=== PATIENT | female | born 1940 | race Caucasian/White ===

== ENCOUNTER → 2017-01-25 | Outpatient (CLI) | payer MEDICARE ==
[~2017-01-25] MED LIST: ACET1TAB52 PO; ASPI-496 PO; ATOR80TA75 PO; CEPH-367 PO; CLOP75TA PO; CYCL5TAB PO; D-MA1POW PO; METO25TA35 PO; MV,C400T2 PO; OMEP-110 PO; PLAN450T PO; SIMV40TA3 PO; VIT1CAPS10 PO
== END | disposition home or self-care (01) ==
LOC: CVU 13:00
PROVIDERS: ATTEND Internal Medicine Cardiovascular Disease
DX: M79.605 Pain in left leg (principal); I70.203 Unspecified atherosclerosis of native arteries of extremities, bilateral legs; R25.2 Cramp and spasm; M54.9 Dorsalgia, unspecified; I10 Essential (primary) hypertension; Z87.891 Personal history of nicotine dependence; I25.2 Old myocardial infarction
CPT/HCPCS: 93922; 93925

== ENCOUNTER → 2018-01-25 | Outpatient (CLI) | payer MEDICARE ==
[~2018-01-25] MED LIST changes: +ATOR-2 PO; -ATOR80TA75 PO
== END ==
LOC: CFH 10:28
PROVIDERS: ATTEND Nurse Practitioner Gerontology
DX: Z12.2 Encounter for screening for malignant neoplasm of respiratory organs (principal); N95.9 Unspecified menopausal and perimenopausal disorder; Z87.891 Personal history of nicotine dependence
CPT/HCPCS: 77080; 93978; G0297

== ENCOUNTER → 2018-10-12 | Outpatient (CLI) | payer MEDICARE | END | disposition home or self-care (01) | LOC: CVU 13:38 | PROVIDERS: ATTEND Physician Assistant Medical | DX: I08.1 Rheumatic disorders of both mitral and tricuspid valves (principal); I25.10 Atherosclerotic heart disease of native coronary artery without angina pectoris; I25.2 Old myocardial infarction; I10 Essential (primary) hypertension; E78.5 Hyperlipidemia, unspecified; Z86.73 Personal history of transient ischemic attack (TIA), and cerebral infarction without residual deficits; Z85.43 Personal history of malignant neoplasm of ovary | CPT/HCPCS: 0399T; 93306 ==

== ENCOUNTER → 2019-01-30 | Outpatient (CLI) | payer MEDICARE ==
[~2019-01-30] MED LIST changes: +OCUVITE SOFTGE1 EACH PO; -VIT1CAPS10 PO
== END | disposition home or self-care (01) ==
LOC: CFH 15:34
PROVIDERS: ATTEND Nurse Practitioner Family
DX: Z12.2 Encounter for screening for malignant neoplasm of respiratory organs (principal); R91.1 Solitary pulmonary nodule; Z87.891 Personal history of nicotine dependence
CPT/HCPCS: G0297

== ENCOUNTER → 2019-10-02 | Outpatient (CLI) | payer MEDICARE ==
[~2019-10-02] MED LIST changes: +REGADENOSON 0.4 MG/5 ML SYRINGE ONE
== END | disposition home or self-care (01) ==
LOC: CFH 10:36
PROVIDERS: ATTEND Internal Medicine Cardiovascular Disease
DX: I25.10 Atherosclerotic heart disease of native coronary artery without angina pectoris (principal); I34.0 Nonrheumatic mitral (valve) insufficiency
CPT/HCPCS: 78452; 93017; 93306; A9502; J2785

== ENCOUNTER 2021-01-01 10:58 | Outpatient (CLI) | payer MEDICARE ==
[~2021-01-01 10:58] MED LIST changes: -PLAN450T PO; +PLAN450T2 PO; -REGADENOSON 0.4 MG/5 ML SYRINGE ONE; +SIMV40TA20 PO; -SIMV40TA3 PO
== END 2021-01-01 23:59 | disposition home or self-care (01) ==
LOC: CFH 10:58
PROVIDERS: ATTEND Internal Medicine Geriatric Medicine
DX: Z12.2 Encounter for screening for malignant neoplasm of respiratory organs (principal); I25.10 Atherosclerotic heart disease of native coronary artery without angina pectoris; J84.10 Pulmonary fibrosis, unspecified; R91.1 Solitary pulmonary nodule; Z87.891 Personal history of nicotine dependence
CPT/HCPCS: 71271

== ENCOUNTER → 2021-04-30 | Outpatient (CLI) | payer MEDICARE ==
[~2021-04-30] MED LIST changes: +REGADENOSON 0.4 MG/5 ML SYRINGE ONE
== END | disposition home or self-care (01) ==
LOC: CFH 10:58
PROVIDERS: ATTEND Internal Medicine Cardiovascular Disease
DX: I08.0 Rheumatic disorders of both mitral and aortic valves (principal); I25.10 Atherosclerotic heart disease of native coronary artery without angina pectoris; I25.89 Other forms of chronic ischemic heart disease; I21.19 ST elevation (STEMI) myocardial infarction involving other coronary artery of inferior wall; I10 Essential (primary) hypertension; E78.5 Hyperlipidemia, unspecified; I25.2 Old myocardial infarction
CPT/HCPCS: 78452; 93017; 93306; A9502; J2785